=== PATIENT | female | born 1995 | race Two or more races ===

== ENCOUNTER 2022-12-11 14:13 | Outpatient (CLI) | payer OTHER | END 2022-12-11 14:27 | disposition home or self-care (01) | LOC: SONOGRAMA 14:13 | PROVIDERS: ATTEND Obstetrics & Gynecology | DX: R10.2 Pelvic and perineal pain (principal); N63.0 Unspecified lump in unspecified breast; R92.2 Inconclusive mammogram; N64.4 Mastodynia; Z12.31 Encounter for screening mammogram for malignant neoplasm of breast; E04.2 Nontoxic multinodular goiter ==